=== PATIENT | male | born 1965 | race Caucasian/White ===

== ENCOUNTER 2018-03-13 19:04 | Emergency (ER) | payer BC, OTHER ==
[~2018-03-13] VITALS: Ht 175.3 cm; Wt 77.1 kg
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
--- NOTE | 2018-03-13 20:13 | NUR ---
PT UNABLE TO GIVE URINE SAMPLE AT THIS MOMENT.
[2018-03-13] MEDS ORDERED: ACETAMINOPHEN ES 500 MG TABLET ONE (20:42)
[2018-03-13] MEDS ORDERED: IBUPROFEN 600 MG TABLET PO ONE (20:43)
[2018-03-13] MEDS: ACETAMINOPHEN ES 500 MG TABLET PO ONE (20:45)
[2018-03-13] MEDS: IBUPROFEN 600 MG TABLET PO ONE (20:45)
[2018-03-13 21:40] LABS: APPEARANCE,URINE Clear (CLEAR); BILIRUBIN,URINE Negative (NEGATIVE); BLOOD, URINE Negative Ery/uL (NEGATIVE); COLOR,URINE Yellow (YELLOW); KETONES,URINE 15 (NEGATIVE); LEUKOCYTE ESTERASE ,URINE Negative (NEGATIVE); NITRITE, URINE Negative (NEGATIVE); PROTEIN,URINE Negative (NEGATIVE); UGLUCOSE Negative (NEGATIVE)
[2018-03-13 21:41] LABS: BACTERIA,URINE Rare /HPF (None Seen); RBC,URINE NONE SEEN /HPF (0-2); SQUAMOUS EPITHELIAL CELL,UR Few /HPF (None Seen); WBC,URINE NONE SEEN /HPF (0-3)
[2018-03-13 22:43] VITALS: BP 134/75
--- NOTE | 2018-03-13 22:43 | NUR ---
Patient discharged to home in stable condition. Written and verbal after care instructions given. Patient verbalizes understanding of instruction. Prescription given.
== END 2018-03-13 22:44 | disposition home or self-care (01) ==
LOC: ER 19:06
DX: S70.02XA Contusion of left hip, initial encounter (principal); R10.9 Unspecified abdominal pain; M16.0 Bilateral primary osteoarthritis of hip; F10.10 Alcohol abuse, uncomplicated; F17.200 Nicotine dependence, unspecified, uncomplicated; V03.10XA Pedestrian on foot injured in collision with car, pick-up truck or van in traffic accident, initial encounter; Y93.89 Activity, other specified; Y92.410 Unspecified street and highway as the place of occurrence of the external cause; Y99.8 Other external cause status
CPT/HCPCS: 72170-TC; 81000-TC; A4606; Z7610